=== PATIENT | female | born 1995 | race Caucasian/White ===

== ENCOUNTER → 2018-02-21 | Outpatient (REF) | payer OTHER | LOC: M LAB REF 17:04 | DX: Z12.4 Encounter for screening for malignant neoplasm of cervix (principal) | CPT/HCPCS: 88142 ==

== ENCOUNTER → 2018-07-04 | Outpatient (REF) | payer OTHER ==
[~2018-07-04] MED LIST: BIAX500T; CLEO300C; KEFL500C; LO OVRAL BCP; MOTR200T4; TYLENOL #3; VICO5TAB
[2018-07-04 15:38] LABS: APPEARANCE, URINE CLOUDY (CLEAR); BACTERIA, URINE AUTO NEGATIVE (NEGATIVE); BILIRUBIN, URINE AUTO NEGATIVE (NEGATIVE); BLOOD, URINE BLOOD 3+ (NEGATIVE); COLOR, URINE YELLOW (YELLOW); GLUCOSE, URINE (UA) AUTO NEGATIVE (NEGATIVE); KETONE, URINE AUTO NEGATIVE (NEGATIVE); LEUKOCYTE ESTERASE, URINE AUTO 3+ (NEGATIVE); MUCUS, URINE SMALL (NEGATIVE); NITRITE, URINE AUTO NEGATIVE (NEGATIVE); PROTEIN, URINE AUTO NEGATIVE (NEGATIVE); RBC, URINE AUTO 65 /HPF (0-3); SPECIFIC GRAVITY URINE AUTO 1.018 (1.002-1.035); SQUAMOUS EPITHELIAL CELL UR AU 2 /HPF (0-6); UROBILINOGEN, URINE AUTO 0.2 mg/dL (0.0-2.0); WBC, URINE AUTO TNTC /HPF (0-3)
== END ==
LOC: M LAB REF 15:01
PROVIDERS: ATTEND Physician Assistant Medical
DX: N39.0 Urinary tract infection, site not specified (principal)

== ENCOUNTER → 2019-01-09 | Outpatient (REF) | payer OTHER ==
[2019-01-09 17:59] LABS: BASO % 0.2 % (0.0-1.0); EOS # 0.2 10^3/uL (0.0-0.5); EOS % 1.6 % (0.0-3.0); HEMATOCRIT 43.9 % (36.0-47.0); HEMOGLOBIN 15.1 g/dl (12.0-15.5); LYMPH # 2.5 10^3/uL (1.5-5.0); LYMPH % 25.4 % (24.0-44.0); MEAN CORPUSCULAR HEMOGLOBIN 32.1 pg (27.0-33.0); MEAN CORPUSCULAR HGB CONC 34.4 g/dl (32.0-36.5); MEAN CORPUSCULAR VOLUME 93.4 fl (80.0-96.0); MONO # 0.7 10^3/uL (0.0-0.8); MONO % 7.3 % (0.0-5.0); NEUTROPHILS # 6.4 10^3/uL (1.5-8.5); NEUTROPHILS % 65.2 % (36.0-66.0); PLATELET COUNT, AUTOMATED 259 10^3/uL (150-450); WHITE BLOOD COUNT 9.8 10^3/uL (4.0-10.0)
[2019-01-09 18:12] LABS: ALBUMIN 3.7 GM/DL (3.2-5.2); ALT/SGPT 25 U/L (12-78); BILIRUBIN,DIRECT 0.2 MG/DL (0.0-0.2); BILIRUBIN,TOTAL 1.1 MG/DL (0.2-1.0); BLOOD UREA NITROGEN 13 MG/DL (7-18); CALCIUM LEVEL 9.2 MG/DL (8.5-10.1); CARBON DIOXIDE LEVEL 28 MEQ/L (21-32); CHLORIDE LEVEL 107 MEQ/L (98-107); FREE T4 1.08 NG/DL (0.76-1.46); GLOMERULAR FILTRATION RATE > 60.0 (>60); GLUCOSE, FASTING 78 MG/DL (70-100); POTASSIUM SERUM 4.3 MEQ/L (3.5-5.1); SODIUM LEVEL 141 MEQ/L (136-145); TOTAL PROTEIN 7.3 GM/DL (6.4-8.2)
[2019-01-09 19:12] LABS: HEMOGLOBIN A1c 4.6 %
== END ==
LOC: M SFHCPLAZ 15:14
PROVIDERS: ATTEND Physician Assistant Medical
DX: I10 Essential (primary) hypertension (principal); E66.01 Morbid (severe) obesity due to excess calories

== ENCOUNTER → 2020-06-10 | Outpatient (CLI) | payer OTHER ==
--- NOTE | 2020-06-10 15:31 | REPPI ---
INDICATION: LOW BACK PAIN WITHOUT SCIATICA COMPARISON: None. TECHNIQUE: AP, lateral, flexion/extension, bilateral oblique, and coned-down views. FINDINGS: Alignment and lordosis is maintained. The vertebral bodies including transverse process and spinous processes are intact and normal. There is no evidence for acute fracture / compression injury or subluxation. No evidence for spondylolysis or spondylolisthesis. Minimal endplate sclerosis and subtle disc space narrowing at L5-S1 cannot be excluded. IMPRESSION: Minimal disc space narrowing at L5-S1 cannot be excluded. <Electronically signed by Gary Voss > 06/10/20 1524
== END ==
LOC: M PLAIMG 14:48
PROVIDERS: ATTEND Physician Assistant Medical
DX: M54.42 Lumbago with sciatica, left side (principal)

== ENCOUNTER → 2020-07-07 | Outpatient (CLI) | payer OTHER | LOC: M PLALAB 14:35 | PROVIDERS: ATTEND Advanced Practice Midwife | DX: Z12.4 Encounter for screening for malignant neoplasm of cervix (principal); Z01.411 Encounter for gynecological examination (general) (routine) with abnormal findings ==

== ENCOUNTER → 2021-07-18 | Outpatient (REF) | payer OTHER | LOC: M LAB REF 12:21 | PROVIDERS: ATTEND Physician Assistant | DX: R07.0 Pain in throat (principal) ==

== ENCOUNTER 2022-06-21 03:12 | Emergency (ER) | payer OTHER ==
[~2022-06-21] VITALS: Ht 172.7 cm; Wt 177.8 kg
[2022-06-21] MEDS ORDERED: MORPHINE 2 MG/ML 1ML VIAL IV PRN (04:25)
[2022-06-21] MEDS ORDERED: NS 1,000 ML IV ONE (04:25)
[2022-06-21 04:44] LABS: BASO % 0.3 % (0.0-1.0); EOS # 0.2 10^3/uL (0.0-0.5); EOS % 1.7 % (0.0-3.0); HEMATOCRIT 42.9 % (36.0-47.0); HEMOGLOBIN 14.7 g/dl (12.0-15.5); LYMPH # 3.5 10^3/uL (1.5-5.0); LYMPH % 30.7 % (24.0-44.0); MEAN CORPUSCULAR HEMOGLOBIN 31.3 pg (27.0-33.0); MEAN CORPUSCULAR HGB CONC 34.3 g/dl (32.0-36.5); MEAN CORPUSCULAR VOLUME 91.3 fl (80.0-96.0); MONO # 0.7 10^3/uL (0.0-0.8); MONO % 6.4 % (2.0-8.0); NEUTROPHILS % 60.8 % (36.0-66.0); PLATELET COUNT, AUTOMATED 272 10^3/uL (150-450); WHITE BLOOD COUNT 11.5 10^3/uL (4.0-10.0)
[2022-06-21 04:56] LABS: LIPASE 26 U/L (12-53)
[2022-06-21 05:02] LABS: ALBUMIN 3.9 G/DL (3.2-5.2); ALKALINE PHOSPHATASE 115 U/L (46-116); ALT/SGPT 18 U/L (7.0-40); AST/SGOT 18 U/L (<34); BILIRUBIN,DIRECT 0.3 MG/DL (<0.4); BILIRUBIN,TOTAL 0.9 MG/DL (0.3-1.2); BLOOD UREA NITROGEN 13 MG/DL (9-23); CALCIUM LEVEL 8.8 MG/DL (8.5-10.1); CARBON DIOXIDE LEVEL 25 MMOL/L (20-31); CHLORIDE LEVEL 106 MMOL/L (98-107); CK-MB VALUE MASS < 1.0 NG/ML (<3.6); GLOMERULAR FILTRATION RATE > 60.0 (>60); GLUCOSE, FASTING 90 MG/DL (60-100); POTASSIUM SERUM 4.1 MMOL/L (3.5-5.1); SODIUM LEVEL 138 MMOL/L (136-145)
[2022-06-21 05:05] LABS: CPK CREATINE PHOSPHOKINASE 67 U/L (34-145); MB/CK RELATIVE INDEX 1.49 (< OR =4)
[2022-06-21 05:08] LABS: HCG, SERUM QUALITATIVE NEGATIVE (NEGATIVE)
[2022-06-21] MEDS ORDERED: ISOVUE-370 76% 100ML VIAL As Ordered ONE (05:15)
[2022-06-21 05:20] LABS: RSV AMPLIFICATION NEGATIVE (NEGATIVE)
[2022-06-21 05:59] LABS: INR 1.01; PROTHROMBIN TIME 13.5 SECONDS (12.5-14.5)
[2022-06-21 06:00] LABS: PARTIAL THROMBOPLASTIN TIME 28.5 SECONDS (24.8-34.2)
[2022-06-21 06:26] LABS: CK-MB VALUE MASS < 1.0 NG/ML (<3.6)
[2022-06-21 06:28] LABS: CPK CREATINE PHOSPHOKINASE 63 U/L (34-145); MB/CK RELATIVE INDEX 1.58 (< OR =4)
[2022-06-21] MEDS ORDERED: KETOROLAC 30 MG/ML 1ML VIAL IV ONE (06:30)
[2022-06-21 07:00] VITALS: BP 141/85
== END 2022-06-21 07:03 | disposition home or self-care (01) ==
LOC: M ED 03:12
DX: R07.89 Other chest pain (principal); Z88.0 Allergy status to penicillin
CPT/HCPCS: 71045; 71275; 80048; 80076; 82550; 82553; 83690; 83880; 84703; 85025; 85610; 85730; 87631; 93005; 93041; 94760; 96365; 96366; 96375; 99285; J1885; J2270

== ENCOUNTER 2022-06-26 13:58 | Inpatient (IN) | payer OTHER ==
[~2022-06-26] VITALS: Ht 172.7 cm; Wt 180.8 kg
[2022-06-26] MEDS ORDERED: FAMOTIDINE 20MG/2ML VIAL IVP ONE (14:55)
[2022-06-26] MEDS ORDERED: diphenhydrAMINE 50MG/ML VIAL IV ONE (14:55)
[2022-06-26] MEDS ORDERED: methylPREDNISolone 125MG 2ML VIAL IV ONE (14:55)
[2022-06-26 15:10] LABS: BASO % 0.5 % (0.0-1.0); EOS # 0.2 10^3/uL (0.0-0.5); EOS % 2.5 % (0.0-3.0); HEMATOCRIT 40.9 % (36.0-47.0); HEMOGLOBIN 14.4 g/dl (12.0-15.5); LYMPH # 1.7 10^3/uL (1.5-5.0); LYMPH % 21.3 % (24.0-44.0); MEAN CORPUSCULAR HEMOGLOBIN 32.1 pg (27.0-33.0); MEAN CORPUSCULAR HGB CONC 35.2 g/dl (32.0-36.5); MEAN CORPUSCULAR VOLUME 91.1 fl (80.0-96.0); MONO # 0.6 10^3/uL (0.0-0.8); NEUTROPHILS # 5.6 10^3/uL (1.5-8.5); NEUTROPHILS % 68.5 % (36.0-66.0); PLATELET COUNT, AUTOMATED 228 10^3/uL (150-450); RED BLOOD COUNT 4.49 10^6/uL (4.00-5.40); WHITE BLOOD COUNT 8.1 10^3/uL (4.0-10.0)
[2022-06-26 16:54] LABS: ALBUMIN 3.4 G/DL (3.2-5.2); ALKALINE PHOSPHATASE 101 U/L (46-116); ALT/SGPT 20 U/L (7.0-40); AST/SGOT 17 U/L (<34); BILIRUBIN,DIRECT 0.4 MG/DL (<0.4); BILIRUBIN,TOTAL 1.3 MG/DL (0.3-1.2); BLOOD UREA NITROGEN 11 MG/DL (9-23); CALCIUM LEVEL 7.8 MG/DL (8.5-10.1); CARBON DIOXIDE LEVEL 24 MMOL/L (20-31); CHLORIDE LEVEL 106 MMOL/L (98-107); GLOMERULAR FILTRATION RATE > 60.0 (>60); GLUCOSE, FASTING 84 MG/DL (60-100); HCG, SERUM QUALITATIVE NEGATIVE (NEGATIVE); MONO SCRN NEGATIVE (NEGATIVE); POTASSIUM SERUM 3.9 MMOL/L (3.5-5.1); SODIUM LEVEL 139 MMOL/L (136-145); TOTAL PROTEIN 6.5 G/DL (5.7-8.2)
[2022-06-26] MEDS ORDERED: ISOVUE-370 76% 100ML VIAL As Ordered ONE (18:20)
[2022-06-26] MEDS ORDERED: NS 500 ML IV ONE (18:25)
[2022-06-26 18:47] LABS: RSV AMPLIFICATION NEGATIVE (NEGATIVE)
[2022-06-26] MEDS ORDERED: HOME MED LIST COMPLETE! XX SCH (19:40)
[2022-06-26] MEDS: FAMOTIDINE 20MG/2ML VIAL IVP SCH (20:56)
[2022-06-26] MEDS: diphenhydrAMINE 50MG/ML VIAL IV SCH (20:56)
[2022-06-26 21:22] VITALS: BP 145/83
[2022-06-26] MEDS: methylPREDNISolone 40MG 1ML VIAL IV SCH (23:46)
[2022-06-27] VITALS: BP 142/74
[2022-06-27] MEDS: diphenhydrAMINE 50MG/ML VIAL IV SCH ×2 (03:02→08:56)
[2022-06-27 04:00] VITALS: BP 125/68
[2022-06-27] MEDS: methylPREDNISolone 40MG 1ML VIAL IV SCH (06:49)
[2022-06-27 07:07] LABS: BASO % 0.2 % (0.0-1.0); EOS % 0.1 % (0.0-3.0); HEMATOCRIT 43.9 % (36.0-47.0); HEMOGLOBIN 15.1 g/dl (12.0-15.5); LYMPH # 0.6 10^3/uL (1.5-5.0); LYMPH % 3.8 % (24.0-44.0); MEAN CORPUSCULAR HEMOGLOBIN 31.7 pg (27.0-33.0); MEAN CORPUSCULAR HGB CONC 34.4 g/dl (32.0-36.5); MEAN CORPUSCULAR VOLUME 92.2 fl (80.0-96.0); MONO # 0.2 10^3/uL (0.0-0.8); MONO % 1.4 % (2.0-8.0); NEUTROPHILS # 15.5 10^3/uL (1.5-8.5); NEUTROPHILS % 93.8 % (36.0-66.0); PLATELET COUNT, AUTOMATED 266 10^3/uL (150-450); RED BLOOD COUNT 4.76 10^6/uL (4.00-5.40); WHITE BLOOD COUNT 16.5 10^3/uL (4.0-10.0)
[2022-06-27 07:40] LABS: ALBUMIN 3.7 G/DL (3.2-5.2); ALKALINE PHOSPHATASE 112 U/L (46-116); ALT/SGPT 21 U/L (7.0-40); AST/SGOT 13 U/L (<34); BILIRUBIN,TOTAL 0.7 MG/DL (0.3-1.2); BLOOD UREA NITROGEN 9 MG/DL (9-23); CALCIUM LEVEL 9.2 MG/DL (8.5-10.1); CARBON DIOXIDE LEVEL 28 MMOL/L (20-31); CHLORIDE LEVEL 106 MMOL/L (98-107); CREATININE FOR GFR 0.65 MG/DL (0.55-1.30); GLOMERULAR FILTRATION RATE > 60.0 (>60); GLUCOSE, FASTING 153 MG/DL (60-100); POTASSIUM SERUM 4.2 MMOL/L (3.5-5.1); SODIUM LEVEL 140 MMOL/L (136-145); TOTAL PROTEIN 7.1 G/DL (5.7-8.2)
[2022-06-27 08:30] VITALS: BP 132/79
[2022-06-27] MEDS: FAMOTIDINE 20MG/2ML VIAL IVP SCH (08:55)
[2022-06-27 12:28] VITALS: BP 117/66
[2022-06-27] MEDS ORDERED: FAMO20TA PO (12:55)
[2022-06-27] MEDS ORDERED: HYDR-643 PO (12:55)
[2022-06-27] MEDS ORDERED: BENA25TA5 PO (12:55)
[2022-06-27] MEDS ORDERED: PRED20TA PO (12:55)
== END 2022-06-27 14:00 | disposition home or self-care (01) | DRG 385 ==
LOC: M ED 13:58 → M ED INP 18:22 → M PED 21:22
PROVIDERS: ADMIT Internal Medicine; ATTEND Internal Medicine
DX: R21 Rash and other nonspecific skin eruption (principal); Z68.44 Body mass index [BMI] 60.0-69.9, adult; E66.01 Morbid (severe) obesity due to excess calories; T78.40XA Allergy, unspecified, initial encounter; F17.290 Nicotine dependence, other tobacco product, uncomplicated; Z20.822 Contact with and (suspected) exposure to COVID-19; Z88.0 Allergy status to penicillin; Z91.018 Allergy to other foods

== ENCOUNTER → 2022-06-29 | Outpatient (REF) | payer OTHER ==
[~2022-06-29] MED LIST changes: +BENA25TA5 PO; +FAMO20TA PO; +HYDR-643 PO; +PRED20TA PO
[2022-06-29 19:16] LABS: BASO % 0.3 % (0.0-1.0); EOS # 1.1 10^3/uL (0.0-0.5); EOS % 6.6 % (0.0-3.0); HEMATOCRIT 48.4 % (36.0-47.0); HEMOGLOBIN 16.2 g/dl (12.0-15.5); LYMPH # 1.5 10^3/uL (1.5-5.0); LYMPH % 9.2 % (24.0-44.0); MEAN CORPUSCULAR HEMOGLOBIN 31.8 pg (27.0-33.0); MEAN CORPUSCULAR HGB CONC 33.5 g/dl (32.0-36.5); MEAN CORPUSCULAR VOLUME 95.1 fl (80.0-96.0); MONO # 0.8 10^3/uL (0.0-0.8); MONO % 5.2 % (2.0-8.0); NEUTROPHILS # 12.4 10^3/uL (1.5-8.5); NEUTROPHILS % 77.9 % (36.0-66.0); PLATELET COUNT, AUTOMATED 258 10^3/uL (150-450); RED BLOOD COUNT 5.09 10^6/uL (4.00-5.40); WHITE BLOOD COUNT 15.9 10^3/uL (4.0-10.0)
[2022-06-29 19:50] LABS: ERYTHROCYTE SEDIMENTATION RATE 18 mm/hr (0-20)
[2022-06-29 19:51] LABS: ALBUMIN 3.7 G/DL (3.2-5.2); ALKALINE PHOSPHATASE 101 U/L (46-116); ALT/SGPT 24 U/L (7.0-40); AST/SGOT 12 U/L (<34); BILIRUBIN,TOTAL 0.9 MG/DL (0.3-1.2); BLOOD UREA NITROGEN 17 MG/DL (9-23); CALCIUM LEVEL 8.7 MG/DL (8.5-10.1); CARBON DIOXIDE LEVEL 30 MMOL/L (20-31); CHLORIDE LEVEL 105 MMOL/L (98-107); GLOMERULAR FILTRATION RATE > 60.0 (>60); GLUCOSE, FASTING 78 MG/DL (60-100); IMMUNOGLOBULIN E 42.9 IU/ML (0-378); POTASSIUM SERUM 4.6 MMOL/L (3.5-5.1); SODIUM LEVEL 143 MMOL/L (136-145); THYROID PEROXIDASE ANTIBODY < 28.0 U/ML (<60.0); TOTAL PROTEIN 7.1 G/DL (5.7-8.2)
== END ==
LOC: M PLALAB 17:15
PROVIDERS: ATTEND Family Medicine
DX: L50.8 Other urticaria (principal)

== ENCOUNTER → 2022-07-06 | Outpatient (REF) | payer OTHER | LOC: M SFHCPLAZ 17:57 | PROVIDERS: ATTEND Physician Assistant | DX: J02.9 Acute pharyngitis, unspecified (principal) ==

== ENCOUNTER → 2022-08-25 | Outpatient (REF) | payer OTHER | LOC: M SFHCPLAZ 17:00 | PROVIDERS: ATTEND Physician Assistant | DX: R39.9 Unspecified symptoms and signs involving the genitourinary system (principal) ==

== ENCOUNTER → 2023-01-16 | Outpatient (CLI) | payer OTHER ==
[2023-01-16 18:28] LABS: BASO % 0.2 % (0.0-1.0); EOS # 0.3 10^3/uL (0.0-0.5); EOS % 2.5 % (0.0-3.0); HEMATOCRIT 42.1 % (36.0-47.0); HEMOGLOBIN 14.6 g/dl (12.0-15.5); LYMPH # 2.5 10^3/uL (1.5-5.0); LYMPH % 25.3 % (24.0-44.0); MEAN CORPUSCULAR HGB CONC 34.7 g/dl (32.0-36.5); MEAN CORPUSCULAR VOLUME 92.3 fl (80.0-96.0); MONO # 0.8 10^3/uL (0.0-0.8); MONO % 8.1 % (2.0-8.0); NEUTROPHILS # 6.3 10^3/uL (1.5-8.5); NEUTROPHILS % 63.7 % (36.0-66.0); PLATELET COUNT, AUTOMATED 256 10^3/uL (150-450); RED BLOOD COUNT 4.56 10^6/uL (4.00-5.40); WHITE BLOOD COUNT 9.9 10^3/uL (4.0-10.0)
[2023-01-16 18:37] LABS: HEMOGLOBIN A1c 4.1 % (4.0-6.0)
[2023-01-16 18:48] LABS: ALBUMIN 3.8 G/DL (3.2-5.2); ALKALINE PHOSPHATASE 106 U/L (46-116); ALT/SGPT 25 U/L (7.0-40); AST/SGOT 14 U/L (<34); BILIRUBIN,TOTAL 0.9 MG/DL (0.3-1.2); BLOOD UREA NITROGEN 12 MG/DL (9-23); CARBON DIOXIDE LEVEL 26 MMOL/L (20-31); CHLORIDE LEVEL 105 MMOL/L (98-107); CHOLESTEROL LEVEL 150 MG/DL (<200); CHOLESTEROL RISK RATIO 3.36 (<5); CREATININE FOR GFR 0.71 MG/DL (0.55-1.30); FREE T4 1.02 NG/DL (0.89-1.76); GLOMERULAR FILTRATION RATE > 60.0 (>60); GLUCOSE, FASTING 77 MG/DL (60-100); HDL CHOLESTEROL 44.6 MG/DL (>40); LDL CHOLESTEROL 72.8 MG/DL (<100); NON-HDL-C 105.4 MG/DL; POTASSIUM SERUM 4.1 MMOL/L (3.5-5.1); SODIUM LEVEL 138 MMOL/L (136-145); THYROID STIMULATING HORMONE 3.211 uIU/ML (0.55-4.78); TRIGLYCERIDES LEVEL 163 MG/DL (<150)
== END ==
LOC: M PLALAB 16:30
PROVIDERS: ATTEND Physician Assistant Medical
DX: E66.01 Morbid (severe) obesity due to excess calories (principal); I10 Essential (primary) hypertension; Z13.220 Encounter for screening for lipoid disorders

== ENCOUNTER → 2023-04-30 | Outpatient (CLI) | payer OTHER ==
[2023-04-30 14:48] LABS: HEMATOCRIT 40.6 % (36.0-47.0); HEMOGLOBIN 14.1 g/dl (12.0-15.5); MEAN CORPUSCULAR HEMOGLOBIN 32.4 pg (27.0-33.0); MEAN CORPUSCULAR HGB CONC 34.7 g/dl (32.0-36.5); MEAN CORPUSCULAR VOLUME 93.3 fl (80.0-96.0); PLATELET COUNT, AUTOMATED 209 10^3/uL (150-450); RED BLOOD COUNT 4.35 10^6/uL (4.00-5.40); WHITE BLOOD COUNT 8.4 10^3/uL (4.0-10.0)
[2023-04-30 15:26] LABS: HIV 1&2 SCREEN NEGATIVE (NEGATIVE)
[2023-04-30 15:34] LABS: HEPATITIS C VIRUS ABY INDEX 0.02 INDEX (<0.8)
== END ==
LOC: M PLALAB 09:16
PROVIDERS: ATTEND Specialist
DX: Z36.9 Encounter for antenatal screening, unspecified (principal)

== ENCOUNTER → 2023-05-11 | Outpatient (CLI) | payer OTHER ==
[2023-05-11 17:06] LABS: HEMATOCRIT 40.4 % (36.0-47.0); HEMOGLOBIN 14.3 g/dl (12.0-15.5); MEAN CORPUSCULAR HEMOGLOBIN 32.3 pg (27.0-33.0); MEAN CORPUSCULAR HGB CONC 35.4 g/dl (32.0-36.5); MEAN CORPUSCULAR VOLUME 91.2 fl (80.0-96.0); PLATELET COUNT, AUTOMATED 224 10^3/uL (150-450); RED BLOOD COUNT 4.43 10^6/uL (4.00-5.40); WHITE BLOOD COUNT 10.5 10^3/uL (4.0-10.0)
[2023-05-11 17:56] LABS: HIV 1&2 SCREEN NEGATIVE (NEGATIVE)
[2023-05-11 18:04] LABS: HEPATITIS C VIRUS ABY INDEX < 0.02 INDEX (<0.8)
[2023-05-11 18:43] LABS: CHLAMYDIA DNA AMPLIFICATION NEGATIVE (NEGATIVE); GC DNA AMPLIFICATION NEGATIVE (NEGATIVE)
== END ==
LOC: M PLALAB 14:49
PROVIDERS: ATTEND Specialist
DX: Z34.01 Encounter for supervision of normal first pregnancy, first trimester (principal)

== ENCOUNTER → 2023-06-14 | Outpatient (CLI) | payer OTHER | LOC: M WHC 14:47 | PROVIDERS: ATTEND Obstetrics & Gynecology | DX: O99.210 Obesity complicating pregnancy, unspecified trimester (principal) ==

== ENCOUNTER → 2023-06-19 | Outpatient (REF) | payer OTHER ==
[2023-06-19 17:22] LABS: APPEARANCE, URINE CLOUDY (CLEAR); BACTERIA, URINE AUTO 1+ (NEGATIVE); BILIRUBIN, URINE AUTO NEGATIVE (NEGATIVE); BLOOD, URINE BLOOD NEGATIVE (NEGATIVE); CALCIUM OXALATE CRYSTALS MODERATE; COLOR, URINE AMBER (YELLOW); GLUCOSE, URINE (UA) AUTO NEGATIVE (NEGATIVE); KETONE, URINE AUTO NEGATIVE (NEGATIVE); LEUKOCYTE ESTERASE, URINE AUTO 3+ (NEGATIVE); MUCUS, URINE SMALL (NEGATIVE); NITRITE, URINE AUTO NEGATIVE (NEGATIVE); PROTEIN, URINE AUTO 1+ mg/dL (NEGATIVE); RBC, URINE AUTO 22 /HPF (0-3); SPECIFIC GRAVITY URINE AUTO 1.016 (1.002-1.035); SQUAMOUS EPITHELIAL CELL UR AU 3 /HPF (0-6); UROBILINOGEN, URINE AUTO 0.2 mg/dL (0.0-2.0); WBC, URINE AUTO TNTC /HPF (0-3)
== END ==
LOC: M LAB REF 16:39
PROVIDERS: ATTEND Physician Assistant Medical
DX: N39.0 Urinary tract infection, site not specified (principal); B96.20 Unspecified Escherichia coli [E. coli] as the cause of diseases classified elsewhere

== ENCOUNTER → 2023-08-03 | Outpatient (CLI) | payer OTHER | LOC: M WHC 10:04 | PROVIDERS: ATTEND Obstetrics & Gynecology | DX: O32.1XX0 Maternal care for breech presentation, not applicable or unspecified (principal); Z3A.27 27 weeks gestation of pregnancy ==

== ENCOUNTER → 2023-08-06 | Outpatient (CLI) | payer OTHER ==
[2023-08-06 15:51] LABS: HEMATOCRIT 36.7 % (36.0-47.0); HEMOGLOBIN 12.6 g/dl (12.0-15.5); MEAN CORPUSCULAR HEMOGLOBIN 33.2 pg (27.0-33.0); MEAN CORPUSCULAR HGB CONC 34.3 g/dl (32.0-36.5); MEAN CORPUSCULAR VOLUME 96.6 fl (80.0-96.0); PLATELET COUNT, AUTOMATED 222 10^3/uL (150-450); WHITE BLOOD COUNT 11.5 10^3/uL (4.0-10.0)
[2023-08-06 15:53] LABS: URIC ACID 3.8 MG/DL (3.1-7.8)
[2023-08-06 15:55] LABS: LDH LACTATE DEHYDROGENASE 160 U/L (120-246)
[2023-08-06 15:56] LABS: ALT/SGPT 25 U/L (7.0-40); AST/SGOT 13 U/L (<34); BILIRUBIN,TOTAL 0.4 MG/DL (0.3-1.2); CREATININE FOR GFR 0.62 MG/DL (0.55-1.30); GLOMERULAR FILTRATION RATE > 60.0 (>60); GLUCOSE CHALLENGE TEST 1 HOUR 103 MG/DL (LESS THAN 140)
[2023-08-06 16:11] LABS: TOTAL PROTEIN,RANDOM URINE 11.4 MG/DL (0.0-14.0)
== END ==
LOC: M PLALAB 12:55
PROVIDERS: ATTEND Advanced Practice Midwife
DX: O99.212 Obesity complicating pregnancy, second trimester (principal)

== ENCOUNTER → 2023-08-22 | Outpatient (CLI) | payer OTHER | LOC: M WHC 14:35 | PROVIDERS: ATTEND Advanced Practice Midwife | DX: O99.213 Obesity complicating pregnancy, third trimester (principal); Z3A.30 30 weeks gestation of pregnancy ==

== ENCOUNTER → 2023-09-27 | Outpatient (CLI) | payer OTHER | LOC: M WHC 09:37 | PROVIDERS: ATTEND Obstetrics & Gynecology | DX: O99.213 Obesity complicating pregnancy, third trimester (principal); Z36.2 Encounter for other antenatal screening follow-up; Z3A.35 35 weeks gestation of pregnancy ==

== ENCOUNTER → 2023-10-03 | Outpatient (REF) | payer OTHER | LOC: M SFHCWAGY 12:14 | PROVIDERS: ATTEND Obstetrics & Gynecology | DX: Z36.89 Encounter for other specified antenatal screening (principal); Z3A.36 36 weeks gestation of pregnancy ==

== ENCOUNTER → 2023-10-24 | Outpatient (REF) | payer OTHER | LOC: M PLALAB 15:31 | PROVIDERS: ATTEND Advanced Practice Midwife | DX: R30.0 Dysuria (principal) ==

== ENCOUNTER 2023-11-07 09:33 | Inpatient (IN) | payer OTHER ==
[~2023-11-07] VITALS: Ht 170.2 cm; Wt 186.2 kg
[2023-11-07] MEDS ORDERED: OXYTOCIN DRIP 30 UNITS in IV 1 EA IV PRN (10:10)
[2023-11-07] MEDS ORDERED: OXYTOCIN INJ 10UNITS/ML 1ML VIAL IM PRN (10:10)
[2023-11-07] MEDS ORDERED: TRANEXAMIC ACID INJection 1,000 MG in NS 100 ML IV PRN (10:10)
[2023-11-07] MEDS ORDERED: LIDOCAINE 1% MDV 20ML VIAL INFIL PRN (10:10)
[2023-11-07] MEDS ORDERED: CARBOPROST TROMETHAMINE 250 MCG/ML AMP IM PRN (10:10)
[2023-11-07] MEDS ORDERED: METHYLERGONOVINE MALEATE 0.2MG/ML 1ML VIAL IM PRN (10:10)
[2023-11-07] MEDS ORDERED: PREN200C PO (10:12)
[2023-11-07] MEDS ORDERED: TUMS500C PO (10:12)
[2023-11-07] MEDS ORDERED: HOME MED LIST COMPLETE! XX SCH (10:15)
[2023-11-07 10:27] VITALS: BP 126/94
[2023-11-07 11:08] LABS: HEMATOCRIT 36.5 % (36.0-47.0); MEAN CORPUSCULAR HGB CONC 35.6 g/dl (32.0-36.5); MEAN CORPUSCULAR VOLUME 92.6 fl (80.0-96.0); PLATELET COUNT, AUTOMATED 208 10^3/uL (150-450); RED BLOOD COUNT 3.94 10^6/uL (4.00-5.40)
[2023-11-07] MEDS: miSOPROStol 50MCG 1/2 TABLET PO SCH (11:24)
[2023-11-07 12:08] LABS: HEPATITIS C VIRUS ABY INDEX < 0.02 INDEX (<0.8)
[2023-11-07 13:33] VITALS: BP 120/83
[2023-11-07 14:55] VITALS: BP 122/76
[2023-11-07 17:09] VITALS: BP 128/74
[2023-11-07 18:10] VITALS: BP 130/80
[2023-11-07] MEDS: LACTATED RINGER'S 1000 ML IV STA (19:48)
[2023-11-07] MEDS ORDERED: ceFAZolin SOD 3 GM IV Place Holder IV ONE (19:50)
[2023-11-07] MEDS ORDERED: LR 1,000 ML IV SCH ×2 (19:50→22:25)
[2023-11-07] MEDS: BICITRA 30ML SOLN UDC PO ONE (20:13)
[2023-11-07] MEDS: ceFAZolin SOD 2 GM in IV 1 EA IV ONE (20:13)
[2023-11-07] MEDS: AZITHROMYCIN INJ 500 MG, VIAL MATE ADAPTER 1 EACH in NS 250 ML IV ONE (20:13)
[2023-11-07] MEDS: ceFAZolin SOD 1 GM in D5W MINI-BAG PLUS 50 ML IV ONE (20:13)
[2023-11-07] MEDS ORDERED: OXYTOCIN 30UNITS IN 0.9% NaCl 500ML IV BAG As Ordered ONE (21:29)
[2023-11-07] MEDS ORDERED: KETOROLAC 60MG 2ML VIAL As Ordered ONE (21:29)
[2023-11-07] MEDS ORDERED: METOCLOPRAMIDE INJ 10MG/2ML VIAL As Ordered ONE (21:29)
[2023-11-07] MEDS ORDERED: ACETAMINOPHEN 1000MG 100ML IV BAG As Ordered ONE (21:29)
[2023-11-07] MEDS ORDERED: ONDANSETRON 4MG 2ML VIAL As Ordered ONE (21:29)
[2023-11-07] MEDS ORDERED: MORPHINE PRES-FREE INJ 10 MG/10 ML VIAL As Ordered ONE (21:29)
[2023-11-07] MEDS ORDERED: PHENYLephrine 500MCG 5ML (100MCG/ML) SYRINGE As Ordered ONE (21:35)
[2023-11-07] MEDS ORDERED: ePHEDrine SULFATE 25 MG/5 ML(5MG/ML) SYRINGE As Ordered ONE (21:35)
[2023-11-07] MEDS ORDERED: PHENYLEPHRINE 10MG/ML 1ML VIAL As Ordered ONE (21:40)
[2023-11-07 21:58] LABS: CORD GAS ABE V -2.7; CORD GAS HCO3 V 25.1 MMOL/L; CORD GAS O2 SAT V 48.1 %; CORD GAS PCO2 V 54.5 mmHg; CORD GAS PH V 7.282 UNITS; CORD GAS PO2 V 22.3 mmHg; CORD GAS SBC V 20.9 MMOL/L; CORD GAS TCO2 V 26.8 MMOL/L
[2023-11-07 22:00] LABS: CORD GAS ABE A -2.8; CORD GAS HCO3 A 23.7 MMOL/L; CORD GAS PCO2 A 47.2 mmHg; CORD GAS PH A 7.319 UNITS; CORD GAS PO2 A 29.9 mmHg; CORD GAS SBC A 21.3 MMOL/L; CORD GAS TCO2 A 25.2 MMOL/L
[2023-11-07] MEDS ORDERED: **NOTE PATIENT COMMENT** MISC XX SCH (22:25)
[2023-11-07] MEDS ORDERED: PERCOCET 5MG/325MG TAB PO PRN (22:25)
[2023-11-07] MEDS ORDERED: METOCLOPRAMIDE INJ 10MG/2ML VIAL IV PRN (22:25)
[2023-11-07] MEDS ORDERED: RHO(D) IMMUNE GLOBULIN/MALTOSE 500MCG(2500IU)/2.2ML VIAL (WINRHO) IM SCH (22:25)
[2023-11-07] MEDS ORDERED: NALOXONE INJ 0.4MG/1ML VIAL IV PRN ×2 (22:25)
[2023-11-07] MEDS ORDERED: fentaNYL 100 MCG/2 ML INJECTION IV PRN (22:25)
[2023-11-07] MEDS: OXYTOCIN DRIP 30 UNITS in IV 1 EA IV SCH (22:25)
[2023-11-07] MEDS: LR 1,000 ML IV SCH (22:25)
[2023-11-07] MEDS ORDERED: ONDANSETRON 4MG 2ML VIAL IV PRN (22:25)
[2023-11-07] MEDS: SLF 3 ML SYR IV SCH (22:25)
[2023-11-07] MEDS ORDERED: diphenhydrAMINE 50MG/ML VIAL IV PRN (22:25)
[2023-11-07] MEDS ORDERED: ONDANSETRON 4MG TAB PO PRN (22:25)
[2023-11-07] MEDS ORDERED: SIMETHICONE 80MG CHEW TAB PO PRN (22:25)
[2023-11-07] MEDS ORDERED: OXYC1TAB23 PO (22:29)
[2023-11-07] MEDS ORDERED: IBUP80TA PO (22:29)
[2023-11-07] MEDS ORDERED: DOCU100C16 PO (22:30)
[2023-11-07] MEDS ORDERED: oxyCODONE 5MG TAB As Ordered ONE (22:50)
[2023-11-07] MEDS: oxyCODONE 5MG TAB PO PRN (22:53)
[2023-11-07 23:10] VITALS: TEMP 97.5
[2023-11-08] VITALS (10 sets, daily range): BP systolic 101–132; BP diastolic 52–70; O2SAT 96–100
[2023-11-08] MEDS: KETOROLAC 30 MG/ML 1ML VIAL IV SCH (04:42)
[2023-11-08 07:45] LABS: HEMATOCRIT 33.6 % (36.0-47.0); HEMOGLOBIN 11.7 g/dl (12.0-15.5); MEAN CORPUSCULAR HEMOGLOBIN 33.1 pg (27.0-33.0); MEAN CORPUSCULAR HGB CONC 34.8 g/dl (32.0-36.5); MEAN CORPUSCULAR VOLUME 94.9 fl (80.0-96.0); PLATELET COUNT, AUTOMATED 189 10^3/uL (150-450); RED BLOOD COUNT 3.54 10^6/uL (4.00-5.40); WHITE BLOOD COUNT 15.9 10^3/uL (4.0-10.0)
[2023-11-08] MEDS: PRENATAL VITAMINS CHEWABLE TABLET PO SCH (08:10)
[2023-11-08] MEDS: ENOXAPARIN 40MG/0.4ML SYRINGE (J1650 PER 10MG) SQ SCH (12:11)
[2023-11-08] MEDS: IBUPROFEN 800 MG TAB PO SCH (23:06)
[2023-11-09 02:00] VITALS: BP 120/60; O2SAT 98
[2023-11-09 06:00] VITALS: BP 124/68; O2SAT 98
[2023-11-09] MEDS: PERCOCET 5MG/325MG TAB PO PRN (06:15)
[2023-11-09] MEDS: MEASLES,MUMPS,RUBELLA VACCINE INJ (MMR-II) SC.IMMUN ONE (09:00)
[2023-11-09 10:12] VITALS: BP 118/73; O2SAT 97
[2023-11-09] MEDS: DOCUSATE SODIUM 100MG CAPSULE PO PRN (13:09)
[2023-11-09 14:00] VITALS: BP 129/72; O2SAT 98
[2023-11-09 18:00] VITALS: BP 121/57; O2SAT 99
[2023-11-10 06:13] VITALS: BP 124/67; O2SAT 98
[2023-11-10 08:07] LABS: HEMATOCRIT 32.3 % (36.0-47.0); MEAN CORPUSCULAR HEMOGLOBIN 32.8 pg (27.0-33.0); MEAN CORPUSCULAR HGB CONC 34.1 g/dl (32.0-36.5); MEAN CORPUSCULAR VOLUME 96.4 fl (80.0-96.0); PLATELET COUNT, AUTOMATED 190 10^3/uL (150-450); RED BLOOD COUNT 3.35 10^6/uL (4.00-5.40); WHITE BLOOD COUNT 8.7 10^3/uL (4.0-10.0)
== END 2023-11-10 14:19 | disposition home or self-care (01) | DRG 540 ==
LOC: M LDI 09:33 → M OBS 11-08 00:10
PROVIDERS: ADMIT Advanced Practice Midwife; ATTEND Specialist
PROC: 3E033VJ Introduction of Other Hormone into Peripheral Vein, Percutaneous Approach (ICD-10-PCS; 2023-11-07)
PROC: 10D00Z1 Extraction of Products of Conception, Low, Open Approach (ICD-10-PCS; principal; 2023-11-07 21:30)
DX: O48.0 Post-term pregnancy (principal); O61.0 Failed medical induction of labor; Z3A.41 41 weeks gestation of pregnancy; Z37.0 Single live birth